=== PATIENT | male | born 1990 | race Caucasian/White ===

== ENCOUNTER 2017-09-04 15:03 | Emergency (ER) | payer MEDICAID ==
[~2017-09-04] VITALS: Ht 172.7 cm; Wt 81.6 kg
[2017-09-04 15:05] VITALS: Ht 172.7 cm; Wt 81.6 kg
[2017-09-04 15:34] LABS: BASOPHIL % 0.5 % (0-2); PLATELET COUNT 220 x10^3mcL (130-400); RED CELL DISTRIBUTION WIDTH 12.9 % (11.5-14.5)
[2017-09-04 15:47] LABS: ALKALINE PHOSPHATASE 98 U/L (46-116); ALT/SGPT 56 U/L (16-63); AST/SGOT 67 U/L (15-37); BILIRUBIN TOTAL 0.47 mg/dL (0.20-1.00); CALCIUM 8.1 mg/dL (8.5-10.1); CARBON DIOXIDE 28.8 mmol/L (21-32); CHLORIDE SERUM 105 mmol/L (98-107); CREATININE SERUM 0.9 mg/dL (0.7-1.3); GFR1 > 60 mL/min; GLUCOSE SERUM 101 mg/dL (74-106); LIPASE 438 IU/L (73-393); SODIUM SERUM 136 mmol/L (136-145)
[2017-09-04 15:49] LABS: ALBUMIN 2.8 g/dL (3.4-5.0); POTASSIUM SERUM 2.9 mmol/L (3.5-5.1); TOTAL PROTEIN, SERUM 5.2 g/dL (6.4-8.2)
[2017-09-04 16:42] VITALS: BP 114/63
== END 2017-09-04 16:42 | disposition home or self-care (01) ==
LOC: ED 15:03
PROVIDERS: Emergency Medicine
DX: F11.23 Opioid dependence with withdrawal (principal); E87.6 Hypokalemia; E86.0 Dehydration
CPT/HCPCS: J1885; J2405; Q0092